=== PATIENT | male | born 1950 | race African-American/Black ===

== ENCOUNTER 2017-01-16 17:24 | Inpatient (IN) | payer OTHER ==
--- NOTE | ~2017-01-16 | EGD ---
EGD REPORT [facility] [address] [place]. [address] NAME: VALENTINA GUNTER : 50 STATUS : DIS IN PAT#: [id number] AGE: 66 ADM/REG DATE : 01/16/17 MR#: [id number] REPORT SERV DATE: 01/22/17 DICTATED BY: RYLEY ZARATE DATE: 01/22/17 REPORT STATUS : Draft TRANSCRIBED BY: [facility] DATE: 01/22/17 Endoscopy Center Patient Name: Valentina Gunter Date of : 1950 Attending MD: RYLEY ZARATE MD Procedure Date No Time: 01/18/2017 Procedure: Colonoscopy Indications: Rectal bleeding Referring MD: MIRNA SIMMS Medicines: as per anesthesia Complications: No immediate complications. Procedure: Pre-Anesthesia Assessment: - ASA Grade Assessment: IV - A patient with severe systemic disease that is a constant threat to life. After I obtained informed consent, the scope was passed under direct vision. Throughout the procedure, the patient's blood pressure, pulse, and oxygen saturations were monitored continuously. The PCF H190L [id number] was introduced through the anus and advanced to the cecum, identified by appendiceal orifice and ileocecal valve. The colonoscopy was performed without difficulty. The patient tolerated the procedure. The quality of the bowel preparation was fair. Findings: The perianal and digital rectal examinations were normal. Internal hemorrhoids were found during endoscopy and were mild. Impression: - Internal hemorrhoids. Recommendation: - Continue present medications. - Repeat colonoscopy in 5 years for surveillance. Procedure Code(s): --- Professional --- 57764, Colonoscopy, flexible, proximal to splenic flexure; diagnostic, with or without collection of specimen(s) by brushing or washing, with or without colon decompression (separate procedure) Diagnosis Code(s): --- Professional --- K64.8, Other hemorrhoids K62.5, Hemorrhage of anus and rectum CPT copyright 2013 [employer]. All rights reserved. EGD REPORT [facility] [address] [place]. [address] NAME: VALENTINA GUNTER : [birth year] STATUS : DIS IN PAT#: [id number] AGE: 66 ADM/REG DATE : 01/16/17 MR#: [id number] REPORT SERV DATE: 01/22/17 DICTATED BY: RYLEY ZARATE. DATE: 01/22/17 REPORT STATUS : Draft TRANSCRIBED BY: [employer] DATE: 01/22/17 The codes documented in this report are preliminary and upon deck worker review may be revised to meet current compliance requirements. RYLEY ZARATE MD 01/18/2017 2:38 PM This report has been signed electronically. Number of Addenda: 0 Note Initiated On: 01/18/2017 1:54 PM Scope Withdrawal Time 0 hours 8 minutes 47 seconds [id number] [place] [address]
--- NOTE | ~2017-01-16 | EGD ---
EGD REPORT [facility] [address] [place]. [address] NAME: VALENTINA GUNTER : [birth year] STATUS : DIS IN PAT#: [id number] AGE: 66 ADM/REG DATE : 01/16/17 MR#: [id number] REPORT SERV DATE: 01/22/17 DICTATED BY: RYLEY ZARATE DATE: 01/22/17 REPORT STATUS : Draft TRANSCRIBED BY: [facility] DATE: 01/22/17 Endoscopy Center Patient Name: Valentina Gunter Date of : 1950 Attending MD: RYLEY ZARATE MD Procedure Date No Time: 01/18/2017 Procedure: Colonoscopy Indications: Rectal bleeding Referring MD: MIRNA SIMMS Medicines: as per anesthesia Complications: No immediate complications. Procedure: Pre-Anesthesia Assessment: - ASA Grade Assessment: IV - A patient with severe systemic disease that is a constant threat to life. After I obtained informed consent, the scope was passed under direct vision. Throughout the procedure, the patient's blood pressure, pulse, and oxygen saturations were monitored continuously. The PCF H190L [id number] was introduced through the anus and advanced to the cecum, identified by appendiceal orifice and ileocecal valve. The colonoscopy was performed without difficulty. The patient tolerated the procedure. The quality of the bowel preparation was fair. Findings: The perianal and digital rectal examinations were normal. Internal hemorrhoids were found during endoscopy and were mild. Impression: - Internal hemorrhoids. Recommendation: - Continue present medications. - Repeat colonoscopy in 5 years for surveillance. Procedure Code(s): --- Professional --- 76656, Colonoscopy, flexible, proximal to splenic flexure; diagnostic, with or without collection of specimen(s) by brushing or washing, with or without colon decompression (separate procedure) Diagnosis Code(s): --- Professional --- K64.8, Other hemorrhoids K62.5, Hemorrhage of anus and rectum CPT copyright 2013 [employer]. All rights reserved. EGD REPORT [facility] [address] [place]. [address] NAME: VALENTINA GUNTER : [birth year] STATUS : DIS IN PAT#: [id number] AGE: 66 ADM/REG DATE : 01/16/17 MR#: [id number] REPORT SERV DATE: 01/22/17 DICTATED BY: RYLEY ZARATE. DATE: 01/22/17 REPORT STATUS : Draft TRANSCRIBED BY: [employer] DATE: 01/22/17 The codes documented in this report are preliminary and upon charger tester review may be revised to meet current compliance requirements. RYLEY ZARATE MD 01/18/2017 2:38 PM This report has been signed electronically. Number of Addenda: 0 Note Initiated On: 01/18/2017 1:54 PM Scope Withdrawal Time 0 hours 8 minutes 47 seconds [id number] [place] [id number]
--- NOTE | ~2017-01-16 | DS ---
Discharge Summary [facility] [address] [place]. [address] NAME: VALENTINA SCHULZ : [birth year] STATUS : DIS IN PAT#: [id number] AGE: 66 ADM/REG DATE : 01/16/17 MR#: [id number] REPORT SERV DATE: 01/22/17 DICTATED BY: DATE: REPORT STATUS : Draft TRANSCRIBED BY: MODL DATE: 01/19/17 ADMISSION DATE: 01/16/2017 DISCHARGE DATE: 01/19/2017 The [facility] CONSULTANTS: Included Dr. Gurvinder Oswald of Gastroenterology. DISCHARGE DIAGNOSES: 1. Hematochezia prior to admission, non-recurrent during admission. Evidence of internal hemorrhoids on colonoscopy. 2. No evidence of acute blood loss anemia. 3. Diarrhea prior to admission, formed bowel movements this admission. Stool studies could not be performed. 4. Chronic kidney disease, stage II to III, baseline creatinine 1.5. Creatinine at baseline throughout admission. 5. Coronary artery disease, status post five-vessel coronary artery bypass graft. 6. Ischemic cardiomyopathy with ejection fraction 40%, and prior by the ICD placement. 7. History of paroxysmal atrial fibrillation versus flutter, normal sinus rhythm, rate controlled here. On chronic anticoagulation. 8. History of deep vein thrombosis and pulmonary embolism diagnosed in 2013, on chronic anticoagulation. 9. Insulin-dependent diabetes mellitus type 2, uncontrolled. Hemoglobin A1c 9.0. 10.History of prostate cancer and subsequent radiation. 11.Chronic iron deficiency anemia, on replacement, with normal iron levels. 12.Chronic pain syndrome and narcotic dependence. 13.Obstructive sleep apnea and obesity hypoventilation syndrome, chronic oxygen dependence. IMAGING AND DIAGNOSTICS: 1. CT of the abdomen and pelvis without contrast, on 01/16/2017 for diarrhea and hematochezia shows stable small right pleural effusion with rounded atelectasis. The posterior basilar right lower lobe unchanged from 10/2015. Mild cardiomegaly with heavy atherosclerotic calcification of the coronary arteries, evidence of prior median sternotomy and AICD. Nonobstructing bilateral nephrolithiasis. No ureteral stones or obstructive uropathy. Rectus diastasis. 2. Attempted colonoscopy on 01/17/2017, canceled because patient was not clear. 3. Colonoscopy on 01/18/2017 showed internal hemorrhoids with recommendation for repeat colonoscopy in five years for surveillance purposes. PERTINENT LABS: Multiple CBCs demonstrating hemoglobin values between 11 and 12, normal platelets. Creatinine between 1.2 and 1.6. INR ranging from 1.3 to 1.4, Coumadin held this admission for procedure. No electrolyte or liver enzyme abnormalities. Stool for guaiac was negative for occult blood, and hemoglobin A1c was 9.0. BRIEF HISTORY: For full details, please see the previously dictated history of present Discharge Summary [address] [address] NAME: VALENTINA SCHLUZ : [birth year] STATUS : DIS IN PAT#: [id number] AGE: 66 ADM/REG DATE : 01/16/17 MR#: [id number] REPORT SERV DATE: 01/22/17 DICTATED BY: DATE: REPORT STATUS : Draft TRANSCRIBED BY: MODMaikel DATE: 01/19/[address] Huber Knapp on 01/16/2017. This is a 66-year-old -Maced[place] male with extensive chronic comorbidities, who presented to the emergency department with chief complaint of bright red blood per rectum, abdominal bloating, and loose stools. He was admitted through the Hospitalist Service for GI consultation and colonoscopy. HOSPITAL COURSE: The patient was seen in consultation by Dr. Gurvinder Oswald on the morning of admission, started on a colon prep. He was unable to complete the prep by the morning of 01/17/2017, and continued to have some brown bowel movements. Colonoscopy could not be performed on that day, but instead was performed on 01/18/2017, demonstrating only internal hemorrhoids and no other abnormality. The patient's diet was advanced over night on 01/18/2017, and he was felt fit for discharge on 01/19/2017 with no recurrence of abdominal pain, diarrhea, or hematochezia during the admission. His Coumadin was restarted on the evening of 01/18/2017, and discharge INR value is subtherapeutic at 1.3. He takes Coumadin for history of atrial fibrillation as well as prior PE/DVT diagnosed in 2013. Thus, there is no need for bridging Lovenox therapy, but the patient's INR will be checked next week at the [facility]. The patient will also need to follow up with Dr. Gurvinder Oswald in four to six weeks. DISCHARGE MEDICATIONS: Include: 1. Aspirin 81 mg p.o. daily. 2. Lipitor 40 mg p.o. at bedtime. 3. Bumex 2 mg p.o. twice a day. 4. Coreg 6.25 mg p.o. twice a day. 5. Iron sulfate 325 mg p.o. daily. 6. Toujeo 45 units subcu b.i.d. 7. Zaroxolyn 5 mg p.o. every 48 hours. 8. MS Contin 15 mg p.o. every 12 hours for pain. 9. Multivitamin one tablet p.o. q.a.m. 10.Nexium 40 mg p.o. daily. 11.MiraLAX one packet p.o. q.a.m. 12.Jantoven 8.5 mg p.o. at bedtime. 13.Roxicodone 30 mg p.o. every six hours p.r.n. breakthrough pain. 14.Albuterol MDI two puffs inhaled daily as needed. 15.Potassium chloride 30 mEq p.o. three times a day with meals. 16.Carafate 1 g p.o. q.a.c. p.r.n. GI upset. 17.Visine tears in both eyes as needed for dry eyes. 18.Proctozone one applicator twice a day p.r.n. hemorrhoids. 19.Humalog 25 units subcu t.i.d. 20.Sublingual nitroglycerin 0.4 mg p.r.n. chest pain. The patient is encouraged to continue cardiac rehab and to adhere to a diabetic diet following discharge. 35 minutes was spent in completion of the discharge. Discharge Summary [address] [address] NAME: VALENTINA SCHULZ : [birth year] STATUS : DIS IN PAT#: [id number] AGE: 66 ADM/REG DATE : 01/16/17 MR#: [id number] REPORT SERV DATE: 01/22/17 DICTATED BY: DATE: REPORT STATUS : Draft TRANSCRIBED BY: MANISHA DATE: 01/19/17 NABEEL/MANISHA Donny Chong M.D. / [id number] CC: Burt Calderon M.D. David Collins, M.D. Dennis Thompson, M.D. Mark Steele, MD
--- NOTE | ~2017-01-16 | HP ---
History And Physical [address] [address] NAME: VALENTINA SCHULZ : [birth year] STATUS : ADM IN PAT#: [id number] AGE: 66 ADM/REG DATE : 01/16/17 MR#: [id number] REPORT SERV DATE: 01/17/17 DICTATED BY: PILAR YUAN DATE: 01/16/17 REPORT STATUS : Draft TRANSCRIBED BY: MODL DATE: 01/16/17 DATE OF ADMISSION: 01/16/2017 REASON FOR ADMISSION: Bright red blood per rectum, apparently guaiac here is negative per ED. Primary care doctor appears to be either Dr. Paulson or Dr. Joseph, see Dr. Oswald for GI needs, has seen Dr. Snowden and Dr. Berg regarding cardiology needs, and Dr. Gagnon for his CABG x5. HISTORY OF PRESENT ILLNESS: This is a 66-year-old, obese male with known history of ischemic cardiomyopathy, LVEF near 40%; CKD 3, baseline around 1.5; new ischemic cardiomyopathy, LVEF apparently 25% to 30% per 06/2016 report; known BiV ICD, recent battery replacement in 07/2016 for which was some superficial mucosal pus treated with oral ciprofloxacin, stopped days ago; known history of atrial fibrillation, on chronic Coumadin; insulin-dependent diabetes, last A1c thought to to been 9.4; history of H. pylori, gastritis, sees Dr. Oswald; known history of colonic polyps, diverticulosis; chronic pain syndrome, on oxy 30 p.o. q.6 p.r.n., MS Contin 15 p.o. b.i.d.; KEVON, CPAP in the past, likely obesity hypoventilation syndrome, the patient is on chronic O2 dependence; chronic respiratory failure after having his CABG in 2014. The patient comes in, since Sunday having abdominal bloating, distention, diarrhea. Apparently diarrhea with mucus, occasionally bright red blood per rectum, his last bright red blood per rectum episode apparently was couple days ago subjectively, as well as having diarrhea yesterday as well. He finished ciprofloxacin days ago. He had an ED guaiac that was negative and called Dr. Oswald who wanted to place the patient on GoLYTELY. Patient states positive chills. No fevers. Some positive nausea. No vomiting. Positive diarrhea stated. No chest pain or chest pressure. Positive chronic shortness of breath, nothing acute. REVIEW OF SYSTEMS: Review of systems done, see HPI. Otherwise, negative. PAST MEDICAL/PAST SURGICAL HISTORY: See above including TIA, DVT 2006, PE, known IVC filter as well. Please see above, history as well, pacer placed in 2011. FAMILY HISTORY: Hypertension in at least one parent. ALLERGIES: APPARENTLY SWELLING TO LISINOPRIL WELL HAVING SWELLING TO [place] [employer] AND HONEYDEW MELON, CAN TOLERATE . HOME MEDICATIONS: See MAR. We will continue what is relevant. OBJECTIVE: VITAL SIGNS: Blood pressure 141/67, temp 97.9, pulse 74, [id number], 98% on room air. History And Physical [address] [address] NAME: VALENTINA SCHULZ : [birth year] STATUS : ADM IN [facility]#: [id number] AGE: 66 ADM/REG DATE : 01/16/17 MR#: [id number] REPORT SERV DATE: 01/17/17 DICTATED BY: PILAR YUAN DATE: 01/16/17 REPORT STATUS : Draft TRANSCRIBED BY: MANISHA DATE: 01/16/17 GENERAL: No acute distress. HEENT: PERRLA. No scleral icterus. CARDIOVASCULAR: Muffled heart sounds, otherwise regular rate and rhythm. No murmur auscultated. RESPIRATORY: Decreased breath sounds bibasilarly, otherwise, no wheezes, no crackles. ABDOMEN: Morbidly obese, nontender to palpation. Nondistended, positive bowel sounds. EXTREMITIES: 1+ pitting edema. NEURO: A and O x4/4. GCS of 15. PSYCH: Normal affect and mood. LABORATORY DATA: White count 6.3, hemoglobin 11.3, baseline appears to be about 12, platelets 26 thousand, sodium 141, potassium 3.2, potassium 39, bicarb 1.58, creatinine BUN 47, albumin 2.9. CT abdomen and pelvis, mild cardiomegaly, heavy atherosclerotic calcification, coronary bed, nonobstructive bilateral nephrolithiasis. No ureteral stones, no obstructive uropathy. Stable small right pleural effusion, rounded atelectasis. ASSESSMENT AND PLAN: 1. Bright red blood per rectum, apparently guaiac here was negative per ED, I do not have that result in front of me though. 2. Chronic anemia. 3. Chronic kidney disease 3, baseline about 1.5. 4. Recent diarrhea, abdominal bloating, request for GoLYTELY for colonoscopy prep per Dr. Oswald. 5. History of ischemic cardiomyopathy, LVEF 25%, known BiV ICD, recent battery replacement on 07/2016, does not appear to have any modified cardiac risk factors, has no active chest pain or chest pressure at this time per patient. 6. History of DVT and PE on IVC filter. 7. Subtherapeutic INR. The patient does take home Coumadin despite INR 1.4. PLAN: Admit this patient. We will go ahead and prep him 4 L of GoLYTELY until his bowel movements are clear. We will need to repeat a guaiac, PPI IV b.i.d. We will also go ahead and reduce his insulin requirements given n.p.o. except medications and ice chips status. given his recent history of Cipro, CPAP at night at home settings. I will also commence significant education regarding weight loss. Get EKG for preoperative clearance in addition to not having any modifiable cardiac risk factors at least seen at this time. See rest of my orders. All questions were answered. It took well over 60 minutes to do. Reference [employer] and [employer]. KRISTEN/MANISHA Pilar Yuan, History And Physical [address] [address] NAME: VALENTINA SCHULZ : 50 STATUS : ADM IN PAT#: [id number] AGE: 66 ADM/REG DATE : 01/16/17 MR#: [id number] REPORT SERV DATE: 01/17/17 DICTATED BY: PILAR YAUN DATE: 01/16/17 REPORT STATUS : Draft TRANSCRIBED BY: BURTL DATE: 01/16/17 / [id number] CC: Burt Calderon M.D.
--- NOTE | ~2017-01-16 | CN ---
Consultation Report [facility] [address] [place]. [address] NAME: VALENTINA SCHULZ : 50 STATUS : ADM IN PAT#: [id number] AGE: 66 ADM/REG DATE : 01/16/17 MR#: [id number] REPORT SERV DATE: 01/17/17 DICTATED BY: RYLEY ZARATE DATE: 01/16/17 REPORT STATUS : Draft TRANSCRIBED BY: MODL DATE: 01/16/17 CONSULTATION NOTE DATE OF CONSULTATION: HISTORY OF PRESENT ILLNESS: This is a 66-year-old white male, who had onset of some bright red blood yesterday, some diarrhea having constipation, some minimal cramping. Wants to have colonoscopy today, but it canceled. He has a past history of colon polyps, history of prostate cancer with radiation, history of diverticular disease, history of coronary artery disease status post stents, history of pulmonary emboli and Coumadin INR of 1.4, hemoglobin 11.3, white count 6300, has an AICD. He is diabetic, hypertensive, obstructive sleep apnea, has gastroparesis. SOCIAL HISTORY: Former smoker. FAMILY HISTORY: Negative for colon cancer. PHYSICAL EXAMINATION: GENERAL: Overweight, alert, white male. HEENT: Anicteric. NECK: Negative. CHEST: Clear to percussion. HEART: Regular rate and rhythm without murmur or gallop. ABDOMEN: Soft, nontender. Bowel sounds active. EXTREMITIES: Grossly intact. ASSESSMENT: 1. Bright red bloody diarrhea which is now more constipation, past history of colon polyps, history of prostate cancer with radiation. 2. Coronary artery disease, status post stent. Automatic implantable cardioverter defibrillator, has been on Coumadin. 3. Diabetes mellitus. 4. Hypertension. 5. Deep venous thrombosis and pulmonary emboli in the past. 6. Obstructive sleep apnea. 7. Gastroparesis. SUGGESTION: We will schedule for colonoscopy in the a.m. Thank you very much for the consultation. DC/MODL Consultation Report [facility] [address] [facility] [place] [address] NAME: VALENTINA SCHULZ : 50 STATUS : ADM IN PAT#: [id number] AGE: 66 ADM/REG DATE : 01/16/17 MR#: [id number] REPORT SERV DATE: 01/17/17 DICTATED BY: RYLEY ZARATE DATE: 01/16/17 REPORT STATUS : Draft TRANSCRIBED BY: MANISHA DATE: 01/16/17 Ryley Zarate M.D. / [id number] CC: HOLLY CARRERA M.D. Dennis Thompson, M.D.
[2017-01-16 12:57] LABS: BASOPHILS 0.2 %; BASOPHILS ABSOLUTE 0.01 10/3/uL (0.0-0.16); EOSINOPHILS 1.3 %; EOSINOPHILS ABSOLUTE 0.08 10/3/uL (0.0-0.53); HEMOGLOBIN 11.3 g/dL (13.6-17.8); IMMATURE GRANULOCYTES 0.2 %; IMMATURE GRANULOCYTES ABSOLUTE 0.01 10/3/uL (0.0-0.11); LYMPHOCYTES 19.7 %; LYMPHOCYTES ABSOLUTE 1.24 10/3/uL (0.67-4.30); MANUAL DIFF NO %; MEAN CORPUS HGB CONC 32.3 g/dL (32.0-36.0); MEAN CORPUSCULAR HEMOGLOB 26.9 pg (26.0-34.0); MEAN CORPUSCULAR VOLUME 83.3 fL (80-100); MEAN PLATELET VOLUME 9.5 fL (9.2-13.0); MONOCYTES 8.3 %; MONOCYTES ABSOLUTE 0.52 10/3/uL (0.21-1.20); NEUTROPHILS 70.3 %; NEUTROPHILS ABSOLUTE 4.44 10/3/uL (2.02-8.40); PLATELET COUNT 186 10/3/uL (150-400); RBC DISTRIBUTION WIDTH 14.6 % (12.0-16.0); WHITE BLOOD CELLS 6.3 10/3/uL (4.5-10.5)
[2017-01-16 13:06] LABS: INTERNATIONAL NORMAL RATI 1.4 UNITS (-); PARTIAL THROMBO TIME 36.4 SEC (22.5-37.2); PROTIME (NOT ORD) 17.4 SEC (12.0-14.5)
[2017-01-16 13:12] LABS: A/G RATIO 0.6 (0.7-1.9); ALBUMIN 2.9 G/DL (3.5-5.0); ALKALINE PHOSPHATASE 98 U/L (45-117); BUN (BLOOD UREA NITROGEN) 47 MG/DL (6-23); CHLORIDE, SERUM 97 MMOL/L (96-112); CO2 (CARBON DIOXIDE) 39 MMOL/L (24-34); CREATININE 1.58 MG/DL (0.70-1.30); GFR AFRICAN AMERICAN 52 ML/MIN (>=60); GFR NON AFRICAN AMERICAN 45 ML/MIN (>=60); GLOBULIN 5.2 G/DL (2.5-4.1); GLUCOSE, SERUM 113 MG/DL (60-99); POTASSIUM, SERUM 3.2 MMOL/L (3.5-5.3); SGOT(AST) 9 U/L (5-40); SGPT(ALT) 15 U/L (5-65); SODIUM, SERUM 141 MMOL/L (135-148); TOTAL BILIRUBIN 0.3 MG/DL (0-1.2); TOTAL PROTEIN 8.1 G/DL (6.0-8.5)
[~2017-01-16 17:24] MED LIST: ADDERALL30 MG PO; AMOXIL500 MG PO; APRES25 PO; ASA5GR PO; ASAB PO; AURALGAN OT; BENICAR HCT1 TAB PO; BETAP120 PO; BETAPACE80 PO; BISR PR; BUM1 PO; BUM2 PO; C1 PO; CARDU2 PO; CAT1 PO; CONSTULOSE PO; COREG12 PO; COREG25 PO; COREG6 PO; COUMADIN10 MG PO; COZ25 PO; COZ50 PO; CRESTOR20 MG PO; CRESTOR40 MG PO; CYMBALTA30 PO; DIABETA5 PO; DUONEB INH; FERROUS SULF325 M1 PO; FLOMAX4 PO; FLONASE NAS; GLUCOPHAGE1000 MG PO; HALF81 PO; HUMALOG SC; HUMALOGMIX SC; HUMALOGPEN SC; IMDUR30 PO; IRON PO; IRON325 MG PO; ISOSORB DIN30 MG PO; JANTOVEN1 MG PO; JANTOVEN10 MG PO; K500 PO; KDUR20 PO; KLOR-CON 1010 MEQ PO; KLOR-CON M2020 MEQ PO; L40 PO; L80 PO; LANTUS SC; LANTUSCART SC; LEVEMFLXPN SC; LEVEMIR PO; LEVEMIR SC; LIPITOR40 PO; LOVENOX40 SC; MELA3 PO; MELATONIN5 M1 PO; MIRALAX POWDER1 PKT PO; MIRALAXPKT OR; MIRALAXPKT PO; MSCONT15 PO; MSCONT60 PO; MULTIPLE VIT PO; MULTIVITAMI1 PO; MYLUD PO; NEXIUM20 M1 PO; NEXIUM40 PO; NITROQUICK0.4 MG SL; NITROSTAT0.4 MG SL; NORV5 PO; NOVOLOG 75/25 SC; NOVOLOG SC; NOVOPEN SC; NTG150 SL; OTC IRON TAB PO; OXYCON40 PO; PERCOCET1 TA4 PO; PLAVIX PO; PRAVACHOL40 MG PO; PREPARATION PR; PREV30 PO; PREVPAC PO; PROAIRRESP INH; PROCTOZONE PR; PROTONIX PO; PROTONIX20 MG PO; PROVENTSOL INH; PROVHFA INH; REG PO; REQUIP5; ROXICODONE30 MG PO; SPIRO25 PO; SUCR PO; T PO; TOUJEO SC; VENTOLIN HFA INH; VISINE TEARS15 ML OPH; VISINE0.05 % OP; VISINE0.05 % OPH; X5 PO; Z5 PO; ZAROX2.5B PO; ZOCOR40 PO; ZOFRAN4 PO; [UNRECOGNIZED DRUG - OTHER] PO
[2017-01-16 23:34] LABS: FERRITIN 163 NG/ML (26-388); IRON BINDING CAPACITY 195 MCG/DL (250-450); IRON, SERUM 46 MCG/DL (35-150); PHOSPHORUS, SERUM 2.6 MG/DL (2.5-4.5)
[2017-01-17 00:20] LABS: PROCALCITONIN <0.05 ng/mL (<0.5)
[2017-01-17 08:22] LABS: BASOPHILS 0.1 %; BASOPHILS ABSOLUTE 0.01 10/3/uL (0.0-0.16); EOSINOPHILS 1.2 %; EOSINOPHILS ABSOLUTE 0.08 10/3/uL (0.0-0.53); HEMATOCRIT 37.1 % (40.0-51.0); HEMOGLOBIN 11.8 g/dL (13.6-17.8); IMMATURE GRANULOCYTES 0.1 %; IMMATURE GRANULOCYTES ABSOLUTE 0.01 10/3/uL (0.0-0.11); LYMPHOCYTES 23.2 %; LYMPHOCYTES ABSOLUTE 1.56 10/3/uL (0.67-4.30); MANUAL DIFF NO %; MEAN CORPUS HGB CONC 31.8 g/dL (32.0-36.0); MEAN CORPUSCULAR HEMOGLOB 27.4 pg (26.0-34.0); MEAN CORPUSCULAR VOLUME 86.1 fL (80-100); MEAN PLATELET VOLUME 9.7 fL (9.2-13.0); MONOCYTES 6.4 %; MONOCYTES ABSOLUTE 0.43 10/3/uL (0.21-1.20); NEUTROPHILS ABSOLUTE 4.62 10/3/uL (2.02-8.40); PLATELET COUNT 171 10/3/uL (150-400); RBC DISTRIBUTION WIDTH 14.3 % (12.0-16.0); RED CELL COUNT 4.31 10/6/uL (4.7-6.1); WHITE BLOOD CELLS 6.7 10/3/uL (4.5-10.5)
[2017-01-17 08:28] LABS: INTERNATIONAL NORMAL RATI 1.3 UNITS (-); PROTIME (NOT ORD) 16.3 SEC (12.0-14.5)
[2017-01-17 08:37] LABS: CALCIUM, SERUM 9.1 MG/DL (8.5-10.4); CHLORIDE, SERUM 99 MMOL/L (96-112); CREATININE 1.45 MG/DL (0.70-1.30); GFR AFRICAN AMERICAN 58 ML/MIN (>=60); GFR NON AFRICAN AMERICAN 50 ML/MIN (>=60); PHOSPHORUS, SERUM 2.1 MG/DL (2.5-4.5); POTASSIUM, SERUM 3.2 MMOL/L (3.5-5.3); SODIUM, SERUM 141 MMOL/L (135-148)
[2017-01-17 08:39] LABS: BUN (BLOOD UREA NITROGEN) 39 MG/DL (6-23); CO2 (CARBON DIOXIDE) 32 MMOL/L (24-34); GLUCOSE, SERUM 167 MG/DL (60-99)
[2017-01-17 16:41] LABS: ASCORBIC ACID (UR NOT ORDER) NEG (NEG); BILIRUBIN, URINE NEGATIVE (NEG); KETONE, URINE NEGATIVE (NEG); LEUKOCYTE ESTERASE(NOT OR NEG (NEG); WBC (NOT ORDERED) (RFLEX) < 1 (0-5)
[2017-01-18 07:38] LABS: BASOPHILS 0.2 %; BASOPHILS ABSOLUTE 0.01 10/3/uL (0.0-0.16); EOSINOPHILS 2.1 %; EOSINOPHILS ABSOLUTE 0.12 10/3/uL (0.0-0.53); HEMATOCRIT 36.7 % (40.0-51.0); HEMOGLOBIN 11.7 g/dL (13.6-17.8); IMMATURE GRANULOCYTES 0.2 %; IMMATURE GRANULOCYTES ABSOLUTE 0.01 10/3/uL (0.0-0.11); LYMPHOCYTES 24.5 %; LYMPHOCYTES ABSOLUTE 1.38 10/3/uL (0.67-4.30); MEAN CORPUS HGB CONC 31.9 g/dL (32.0-36.0); MEAN CORPUSCULAR HEMOGLOB 27.7 pg (26.0-34.0); MEAN CORPUSCULAR VOLUME 86.8 fL (80-100); MEAN PLATELET VOLUME 9.6 fL (9.2-13.0); MONOCYTES 8.9 %; NEUTROPHILS 64.1 %; NEUTROPHILS ABSOLUTE 3.61 10/3/uL (2.02-8.40); PLATELET COUNT 184 10/3/uL (150-400); RBC DISTRIBUTION WIDTH 14.3 % (12.0-16.0); RED CELL COUNT 4.23 10/6/uL (4.7-6.1); WHITE BLOOD CELLS 5.6 10/3/uL (4.5-10.5)
[2017-01-18 07:41] LABS: MANUAL DIFF NO %
[2017-01-18 07:49] LABS: CALCIUM, SERUM 8.6 MG/DL (8.5-10.4); CHLORIDE, SERUM 98 MMOL/L (96-112); CO2 (CARBON DIOXIDE) 34 MMOL/L (24-34); CREATININE 1.27 MG/DL (0.70-1.30); GFR AFRICAN AMERICAN 68 ML/MIN (>=60); GFR NON AFRICAN AMERICAN 58 ML/MIN (>=60); GLUCOSE, SERUM 191 MG/DL (60-99); PHOSPHORUS, SERUM 2.1 MG/DL (2.5-4.5); POTASSIUM, SERUM 3.3 MMOL/L (3.5-5.3); SODIUM, SERUM 143 MMOL/L (135-148)
[2017-01-18 07:50] LABS: BUN (BLOOD UREA NITROGEN) 23 MG/DL (6-23)
[2017-01-19 06:26] LABS: BASOPHILS 0.4 %; BASOPHILS ABSOLUTE 0.02 10/3/uL (0.0-0.16); EOSINOPHILS 2.5 %; EOSINOPHILS ABSOLUTE 0.12 10/3/uL (0.0-0.53); HEMATOCRIT 34.6 % (40.0-51.0); HEMOGLOBIN 11.1 g/dL (13.6-17.8); IMMATURE GRANULOCYTES 0.2 %; IMMATURE GRANULOCYTES ABSOLUTE 0.01 10/3/uL (0.0-0.11); LYMPHOCYTES 24.7 %; LYMPHOCYTES ABSOLUTE 1.18 10/3/uL (0.67-4.30); MEAN CORPUS HGB CONC 32.1 g/dL (32.0-36.0); MEAN CORPUSCULAR HEMOGLOB 27.5 pg (26.0-34.0); MEAN CORPUSCULAR VOLUME 85.6 fL (80-100); MEAN PLATELET VOLUME 9.5 fL (9.2-13.0); MONOCYTES 10.3 %; MONOCYTES ABSOLUTE 0.49 10/3/uL (0.21-1.20); NEUTROPHILS 61.9 %; NEUTROPHILS ABSOLUTE 2.95 10/3/uL (2.02-8.40); PLATELET COUNT 179 10/3/uL (150-400); RED CELL COUNT 4.04 10/6/uL (4.7-6.1); WHITE BLOOD CELLS 4.8 10/3/uL (4.5-10.5)
[2017-01-19 06:29] LABS: MANUAL DIFF NO %
[2017-01-19 06:30] LABS: INTERNATIONAL NORMAL RATI 1.3 UNITS (-); PROTIME (NOT ORD) 16.1 SEC (12.0-14.5)
[2017-01-19 06:37] LABS: CALCIUM, SERUM 8.7 MG/DL (8.5-10.4); CHLORIDE, SERUM 98 MMOL/L (96-112); CO2 (CARBON DIOXIDE) 33 MMOL/L (24-34); CREATININE 1.16 MG/DL (0.70-1.30); GFR AFRICAN AMERICAN 76 ML/MIN (>=60); GFR NON AFRICAN AMERICAN 65 ML/MIN (>=60); GLUCOSE, SERUM 209 MG/DL (60-99); PHOSPHORUS, SERUM 2.2 MG/DL (2.5-4.5); POTASSIUM, SERUM 3.1 MMOL/L (3.5-5.3); SODIUM, SERUM 139 MMOL/L (135-148)
[2017-01-19 06:45] LABS: BUN (BLOOD UREA NITROGEN) 16 MG/DL (6-23)
== END 2017-01-19 13:49 | disposition home or self-care (01) | DRG 378 ==
LOC: ER 17:24 → 5SO 19:26
PROVIDERS: Emergency Medicine; Hospitalist; Internal Medicine; Internal Medicine Gastroenterology
PROC: 0DJD8ZZ Inspection of Lower Intestinal Tract, Via Natural or Artificial Opening Endoscopic (ICD-10-PCS; principal; 2017-01-18 12:30)
DX: K62.5 Hemorrhage of anus and rectum (principal); Z68.42 Body mass index [BMI] 45.0-49.9, adult; J96.10 Chronic respiratory failure, unspecified whether with hypoxia or hypercapnia; Z99.81 Dependence on supplemental oxygen; I48.2 Chronic atrial fibrillation; K31.84 Gastroparesis; E66.9 Obesity, unspecified; I25.5 Ischemic cardiomyopathy; I25.10 Atherosclerotic heart disease of native coronary artery without angina pectoris; N18.3 Chronic kidney disease, stage 3 (moderate); E11.9 Type 2 diabetes mellitus without complications; G89.4 Chronic pain syndrome; Z95.810 Presence of automatic (implantable) cardiac defibrillator; Z79.01 Long term (current) use of anticoagulants; Z79.4 Long term (current) use of insulin; Z86.010 Personal history of colon polyps; Z79.899 Other long term (current) drug therapy; Z95.1 Presence of aortocoronary bypass graft; Z82.49 Family history of ischemic heart disease and other diseases of the circulatory system; Z88.8 Allergy status to other drugs, medicaments and biological substances; Z85.46 Personal history of malignant neoplasm of prostate; Z92.3 Personal history of irradiation
CPT/HCPCS: 36415; 74176; 80048; 80053; 81001; 82272; 82728; 82962; 83036; 83540; 83550; 83735; 84100; 84145; 85025; 85610; 85730; 86850; 86900; 86901; 87493; 87493-59; 94640; 99285; A9270-GY; C9113; J2405

== ENCOUNTER 2017-01-31 02:13 | Emergency (ER) | payer OTHER ==
[2017-01-31 03:03] LABS: BASOPHILS 0.2 %; BASOPHILS ABSOLUTE 0.01 10/3/uL (0.0-0.16); EOSINOPHILS 0.8 %; EOSINOPHILS ABSOLUTE 0.05 10/3/uL (0.0-0.53); HEMATOCRIT 34.8 % (40.0-51.0); HEMOGLOBIN 11.2 g/dL (13.6-17.8); IMMATURE GRANULOCYTES 0.2 %; IMMATURE GRANULOCYTES ABSOLUTE 0.01 10/3/uL (0.0-0.11); LYMPHOCYTES 19.5 %; LYMPHOCYTES ABSOLUTE 1.16 10/3/uL (0.67-4.30); MEAN CORPUS HGB CONC 32.2 g/dL (32.0-36.0); MEAN CORPUSCULAR HEMOGLOB 27.7 pg (26.0-34.0); MEAN CORPUSCULAR VOLUME 86.1 fL (80-100); MEAN PLATELET VOLUME 9.6 fL (9.2-13.0); MONOCYTES 5.7 %; MONOCYTES ABSOLUTE 0.34 10/3/uL (0.21-1.20); NEUTROPHILS 73.6 %; NEUTROPHILS ABSOLUTE 4.37 10/3/uL (2.02-8.40); PLATELET COUNT 185 10/3/uL (150-400); RBC DISTRIBUTION WIDTH 14.2 % (12.0-16.0); RED CELL COUNT 4.04 10/6/uL (4.7-6.1); WHITE BLOOD CELLS 5.9 10/3/uL (4.5-10.5)
[2017-01-31 03:04] LABS: ER CBC TAT 0 Hrs 05 MinsNP; MANUAL DIFF NO %
[2017-01-31 03:11] LABS: INTERNATIONAL NORMAL RATI 2.3 UNITS (-); PARTIAL THROMBO TIME 42.2 SEC (22.5-37.2)
[2017-01-31 03:18] LABS: CALCIUM, SERUM 8.1 MG/DL (8.5-10.4); CHEST PAIN PROFILE TAT 0 Hrs 00 Mins; CHLORIDE, SERUM 95 MMOL/L (96-112); GFR AFRICAN AMERICAN 41 ML/MIN (>=60); GFR NON AFRICAN AMERICAN 35 ML/MIN (>=60); GLUCOSE, SERUM 202 MG/DL (60-99); POTASSIUM, SERUM 3.2 MMOL/L (3.5-5.3); SODIUM, SERUM 140 MMOL/L (135-148); TROPONIN I <0.02 NG/ML (<0.05)
[2017-01-31 03:19] LABS: BUN (BLOOD UREA NITROGEN) 41 MG/DL (6-23); CO2 (CARBON DIOXIDE) 39 MMOL/L (24-34); CREATININE 1.91 MG/DL (0.70-1.30)
== END 2017-01-31 04:25 | disposition home or self-care (01) ==
LOC: ER 02:13
PROVIDERS: Emergency Medicine
DX: R06.00 Dyspnea, unspecified (principal); N28.9 Disorder of kidney and ureter, unspecified; I50.9 Heart failure, unspecified; I25.2 Old myocardial infarction; Z86.73 Personal history of transient ischemic attack (TIA), and cerebral infarction without residual deficits; D64.9 Anemia, unspecified; Z88.8 Allergy status to other drugs, medicaments and biological substances; Z79.82 Long term (current) use of aspirin; Z79.899 Other long term (current) drug therapy
CPT/HCPCS: 71020; 80048; 83735; 83880; 84484; 85025; 85610; 85730; 99285

== ENCOUNTER 2017-03-25 22:16 | Emergency (ER) | payer OTHER ==
[2017-03-25 18:48] LABS: BASOPHILS 0.3 %; BASOPHILS ABSOLUTE 0.02 10/3/uL (0.0-0.16); EOSINOPHILS 1.5 %; EOSINOPHILS ABSOLUTE 0.09 10/3/uL (0.0-0.53); ER CBC TAT 0 Hrs 02 Mins; HEMATOCRIT 38.1 % (40.0-51.0); HEMOGLOBIN 12.1 g/dL (13.6-17.8); IMMATURE GRANULOCYTES 0.2 %; IMMATURE GRANULOCYTES ABSOLUTE 0.01 10/3/uL (0.0-0.11); LYMPHOCYTES 21.8 %; LYMPHOCYTES ABSOLUTE 1.28 10/3/uL (0.67-4.30); MEAN CORPUS HGB CONC 31.8 g/dL (32.0-36.0); MEAN CORPUSCULAR HEMOGLOB 27.4 pg (26.0-34.0); MEAN CORPUSCULAR VOLUME 86.2 fL (80-100); MEAN PLATELET VOLUME 9.4 fL (9.2-13.0); MONOCYTES 7.2 %; MONOCYTES ABSOLUTE 0.42 10/3/uL (0.21-1.20); NEUTROPHILS ABSOLUTE 4.04 10/3/uL (2.02-8.40); PLATELET COUNT 198 10/3/uL (150-400); RBC DISTRIBUTION WIDTH 14.7 % (12.0-16.0); RED CELL COUNT 4.42 10/6/uL (4.7-6.1); WHITE BLOOD CELLS 5.9 10/3/uL (4.5-10.5)
[2017-03-25 18:49] LABS: MANUAL DIFF NO %
[2017-03-25 18:57] LABS: INTERNATIONAL NORMAL RATI 1.9 UNITS (-)
[2017-03-25 19:00] LABS: PROTIME (NOT ORD) 21.2 SEC (12.0-14.5)
[2017-03-25 19:07] LABS: BUN (BLOOD UREA NITROGEN) 45 MG/DL (6-23); CALCIUM, SERUM 9.7 MG/DL (8.5-10.4); CHEST PAIN PROFILE TAT 0 Hrs 21 Mins; CHLORIDE, SERUM 96 MMOL/L (96-112); CO2 (CARBON DIOXIDE) 39 MMOL/L (24-34); CREATININE 1.74 MG/DL (0.70-1.30); GFR AFRICAN AMERICAN 46 ML/MIN (>=60); GFR NON AFRICAN AMERICAN 40 ML/MIN (>=60); GLUCOSE, SERUM 168 MG/DL (60-99); POTASSIUM, SERUM 3.6 MMOL/L (3.5-5.3); SODIUM, SERUM 137 MMOL/L (135-148); TROPONIN I <0.02 NG/ML (<0.05)
== END 2017-03-26 | disposition home or self-care (01) ==
LOC: ER 22:16
PROVIDERS: Emergency Medicine
DX: R06.02 Shortness of breath (principal); R60.0 Localized edema; N18.9 Chronic kidney disease, unspecified; D64.9 Anemia, unspecified; E11.9 Type 2 diabetes mellitus without complications; Z95.810 Presence of automatic (implantable) cardiac defibrillator; Z95.1 Presence of aortocoronary bypass graft; G47.30 Sleep apnea, unspecified; I48.91 Unspecified atrial fibrillation; Z86.73 Personal history of transient ischemic attack (TIA), and cerebral infarction without residual deficits; Z86.718 Personal history of other venous thrombosis and embolism; Z88.8 Allergy status to other drugs, medicaments and biological substances; Z79.899 Other long term (current) drug therapy; Z79.82 Long term (current) use of aspirin; Z79.01 Long term (current) use of anticoagulants; Z79.4 Long term (current) use of insulin
CPT/HCPCS: 71020; 80048; 83735; 83880; 84484; 85025; 85610; 85730; 93005; 99285